=== PATIENT | female | born 1995 | race Caucasian/White ===

== ENCOUNTER 2016-08-29 12:42 | Emergency (ER) | payer OTHER, BC ==
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
== END 2016-08-29 14:10 | disposition home or self-care (01) ==
LOC: ER 12:42
DX: S90.01XA Contusion of right ankle, initial encounter (principal); S96.911A Strain of unspecified muscle and tendon at ankle and foot level, right foot, initial encounter; F17.210 Nicotine dependence, cigarettes, uncomplicated; V49.40XA Driver injured in collision with unspecified motor vehicles in traffic accident, initial encounter